=== PATIENT | male | born 1960 | race Caucasian/White ===

== ENCOUNTER → 2024-04-27 11:28 | Outpatient (REF) | payer BC, SELFPAY | LOC: HWRAD 11:28 | PROVIDERS: ATTENDING PHYSICIAN Nurse Practitioner Family | DX: M54.41 Lumbago with sciatica, right side (principal); M54.42 Lumbago with sciatica, left side | CPT/HCPCS: 72110 ==

== ENCOUNTER 2024-04-30 16:17 | Emergency (ER) | payer BC, SELFPAY ==
[2024-04-30 16:18] VITALS: BP 146/102
[2024-04-30 17:24] VITALS: BMI 25.3
--- NOTE | 2024-04-30 17:26 | ED.GENMED ---
History of Present Illness
General
Chief Complaint: Numbness
Source: patient and spouse
Exam Limitations: none
Time Seen by Provider: 04/30/24 17:13
Nursing documentation reviewed up to this point in time: agreed with
History of Present Illness
History of Present Illness:
64-year-old male with no reported past medical history presents to the emergency room for evaluation of low back pain and leg weakness/numbness. Patient reports that he started having back pain about 2 weeks ago�he cannot recall any particular
incident or injury that precipitated his symptoms except to note that he was traveling a lot and doing a lot of yard work and so he was doing a lot of prolonged sitting with interspersed rather vigorous yard work. He says that he started out with
what felt like a low back strain that radiated into his buttock bilaterally. He says that since then he has started to have shooting pains down both legs towards the feet and he is having numbness of both legs and feet. He says he feels like he is
weak in both of his legs. He says he saw his PCP who performed an x-ray last week which was unremarkable. He was started on cyclobenzaprine and has been taking NSAIDs but this has not helped very much. He was started on a steroid pack which did
not help. With increasing weakness and numbness in the legs his primary doctor sent him to the ER for evaluation. He denies any saddle anesthesia. Denies any incontinence of his bowel or bladder. He denies any history of cancer. He denies any
recent low back injections. Denies any IV drug use.
Review of Systems
Review of Systems
All Other Systems: ROS reviewed and negative except as documented in HPI and ROS
Constitutional: Denies fever or chills
Respiratory: Denies trouble breathing
Cardiac: Denies chest pain
ABD/GI: Denies abdominal pain, nausea or vomiting
: Denies flank pain or incontinence
Musculoskeletal: Reports back pain; Denies neck pain
Neurological: Reports weakness and numbness; Denies headache
Phy Exam
Physical Exam
Physical Exam:
General: Awake, alert, oriented x3; no acute distress
Head: Normocephalic, atraumatic
Eyes: Conjunctiva normal, sclera anicteric
Throat: Airway intact, handling secretions
Neck: Trachea midline, supple without meningismus
Lungs: Breathing comfortably no distress
Heart: Regular rate
Abd: Soft, non distended, nontender
Back: No reproducible tenderness in the thoracic or lumbar spine; negative straight leg raise bilaterally
Neuro: Cranial nerves grossly intact, speech fluid; mildly hyperreflexive bilateral lower extremities; patient has 4/5 strength on dorsi flexion bilaterally at the great toe; 5/5 proximal strength bilaterally in the legs; subjective numbness S1-S2
distribution bilaterally
Skin: no rash
Extremities: No edema in extremities, equal pulses in all extremities
Scores
Heart Failure Risk
Heart Failure Risk Score: Not Applicable
Heart Score for Chest Pain Patients
STEMI patient?: Not applicable
Withdrawal Assessment of Alcohol
Withdrawal Assessment Completed?: Not applicable
Course
Orders/Labs/Results
Orders:
Orders
04/30/24 17:15
Bladder Scan- Treatment ONCE
04/30/24 17:24
MR Lumbar Without Contrast Urgent
Comment:
Reason For Exam: low back pain, bilateral LE weakness and numbness
Recent pill cam endoscopy?: No
04/30/24 17:27
Complete Blood Count/With Diff Urgent
Comprehensive Metabolic Panel Urgent
Abnormal Lab Results
04/30/24
17:27
WBC 12.7 H 10^3/uL
(4.8-10.8)
Abs Immat Gran (auto) 0.1 H 10^3/uL
(0-0.05)
Absolute Neuts (auto) 11.6 H 10^3/uL
(1.4-6.5)
Absolute Lymphs (auto) 0.6 L 10^3/uL
(1.2-3.4)
Neutrophils % 91.8 H %
(42.2-75.2)
Lymphocytes % 5.1 L %
(20.5-51.1)
BUN 23 H mg/dl
(9-20)
Glucose 119 H mg/dl
(70-99)
04/30/24 17:27
04/30/24 17:27
Vital Signs
Initial and Last Documented VS:
Initial Vital Signs
Temp Pulse Resp BP Pulse Ox
36.6 C 76 16 146/102 97
04/30/24 16:18 04/30/24 16:18 04/30/24 16:18 04/30/24 16:18 04/30/24 16:18
Last Documented Vital Signs
Temp Pulse Resp BP Pulse Ox
36.6 C 77 16 131/94 97
04/30/24 16:18 04/30/24 18:00 04/30/24 18:00 04/30/24 18:00 04/30/24 18:00
MDM/Problems Addressed
Differential Diagnosis Includes:
Lumbosacral radiculopathy, cauda equina syndrome, muscular strain
MDM/Problems Addressed:
64-year-old male presents with low back pain now associated with increasing weakness and numbness in the legs. No saddle seizure or incontinence of bowel or bladder. Hypertensive but otherwise normal vitals. Physical exam as above�notably weak on
dorsiflexion bilaterally and has subjective sensory deficit bilaterally. Will plan to check screening labs and sent for MRI of the lumbar spine to rule out cauda equina syndrome. Discussed with radiologist to facilitate MRI.
Labs reviewed: CBC shows slight leukocytosis likely related to recent steroid course. CMP no clinically significant abnormalities. Patient currently in MRI, continue to monitor pending results.
MRI shows moderate severe canal stenosis L4-L5, no compression of the conus medullaris or spinal cord. Case discussed with neurosurgery that she does have some weakness on extension of the hallux longus bilaterally and some subjective sensory
deficit but strength otherwise intact, patient is ambulatory in ER. He has no retention of urine on bladder scan. Low suspicion for cauda equina syndrome but should be seen urgently, recommended starting on steroid Dosepak and follow-up in the
office within the next few days. Patient comfortable this plan. Spoke about return precautions all questions answered.
*Radiology
Radiology exam reviewed: radiology read reviewed
*Pulse Oximetry
Patient hypoxic: no
*Critical Care Note
Total Time (30-74mins, 75-104mins- exclusive of procedures): Not Applicable
Data Reviewed
Source: patient and spouse
Patient Management
Discussion with other providers: Radiologist (Discussed with radiologist)
ED Attending Note
-
Portions of this chart may have been created with voice recognition software.� Occasional wrong word or��sound alike� substitutions may have occurred due to the inherent limitations of voice recognition software.
Discharge Plan
Departure
Patient Disposition: Home (Routine Discharge)
Date of Disposition: 04/30/24
Time of Disposition: 19:37
Patient with high blood pressure during this ER visit?: Yes
Discharge Problem:
Low back pain, Lumbosacral radiculopathy
Instructions: Lumbar spinal stenosis
Prescriptions:
New
gabapentin 100 mg capsule
100 mg PO TID Qty: 20 0RF
prednisone 20 mg tablet
40 mg PO DAILY 5 Days Qty: 10 0RF
Referrals:
Philip Bautista CRNP [Family Provider] -
Ash Cummings DO [Active] - Call in 1-3 days for appt (Call tomorrow)
Activity Restrictions/Additional Instructions:
Thank you for visiting the Emergency Department at [facility].
1. Please schedule a follow up appointment as directed. Call first thing tomorrow morning to make an appointment.
2. If indicated, please take your medications as instructed and indicated on discharge paperwork.
3. If any of your symptoms do not improve, or persist, or become more severe within 6-12 hours, please return to the emergency department for further care.
4. Please return to the emergency department if you develop a headache, neck pain/stiffness, fever greater than 100.4F, chest pain, shortness of breath, persistent nausea, vomiting, slurred speech, difficulty walking, numbness/tingling, weakness,
signs of infection or any other symptoms that are worrisome to you.
Please call [phone] if you have any questions.
Interventions
Interventions:
*Risk Screen - Suicide Last Done: 04/30/24 17:25
*General Assessment Last Done: 04/30/24 17:25
*Neglect/Abuse Screening Last Done: 04/30/24 17:25
*ED COVID-19 Vaccine History Last Done: 04/30/24 17:13
ED- Neurological Assessment Last Done: 04/30/24 17:13
Discharge Date and Time
Print Language: SWAZI
[2024-04-30 17:42] LABS: % Basophils 0.2 % (0-2); % Immature Granulocytes 0.4 % (0-0.5); % Lymphocytes 5.1 % (20.5-51.1); % Monocytes 2.5 % (1.7-9.3); % Neutrophils 91.8 % (42.2-75.2); Absolute Immature Granulocytes 0.1 10^3/uL (0-0.05); Absolute Lymphocytes 0.6 10^3/uL (1.2-3.4); Absolute Monocytes 0.3 10^3/uL (0.1-0.6); Absolute Neutrophils 11.6 10^3/uL (1.4-6.5); Hematocrit 44.4 % (39.0-52.0); Hemoglobin 15.5 g/dL (13.0-18.0); Mean Corp Hgb Conc. 34.9 g/dL (33.0-37.0); Mean Corpuscular Hgb 30.2 pg (27.0-31.0); Mean Corpuscular Volume 86.4 fL (80.0-94.0); Mean Platelet Volume 9.6 fL (7.4-10.4); Nucleated Red Blood Cells % 0 % (-); Platelet Count 328 10^3/uL (130-400); Red Blood Cell Count 5.14 10^6/uL (4.70-6.10); Red Cell Dist. Width 12.5 % (11.5-14.5); White Blood Cell Count 12.7 10^3/uL (4.8-10.8)
[2024-04-30 17:58] LABS: ALT (SGPT) 41 U/L (0-50); AST (SGOT) 32 U/L (17-59); Albumin 4.7 g/dl (3.5-5.0); Alkaline Phosphatase 92 U/L (38-126); Blood Urea Nitrogen 23 mg/dl (9-20); Calcium 9.7 mg/dl (8.4-10.2); Carbon Dioxide 24 mmol/L (22-30); Chloride 102 mmol/L (98-107); Estimated Creatinine Clearance 105 ml/min; Glucose 119 mg/dl (70-99); Potassium 4.8 mmol/L (3.5-5.1); Sodium 140 mmol/L (135-145); Total Bilirubin 0.4 mg/dl (0.2-1.3); Total Protein 7.2 g/dl (6.3-8.2); eGFR > 60.00
[2024-04-30 18:00] VITALS: BP 131/94
[2024-04-30 19:38] VITALS: BP 142/91
== END 2024-04-30 20:21 | disposition home or self-care (01) ==
LOC: EMR 16:17
PROVIDERS: EMERGENCY PHYSICIAN Emergency Medicine; FAMILY PHYSICIAN Nurse Practitioner Family
DX: M54.17 Radiculopathy, lumbosacral region (principal); M48.061 Spinal stenosis, lumbar region without neurogenic claudication
CPT/HCPCS: 99284; 72148; 80053; 85025

== ENCOUNTER → 2024-07-09 08:46 | Outpatient (REF) | payer BC, SELFPAY ==
[2024-07-09 12:11] LABS: % Basophils 0.9 % (0-2); % Eosinophils 4.3 % (0-6); % Immature Granulocytes 0.2 % (0-0.5); % Lymphocytes 22.5 % (20.5-51.1); % Neutrophils 61.1 % (42.2-75.2); Absolute Eosinophils 0.2 10^3/uL (0-0.7); Absolute Monocytes 0.5 10^3/uL (0.1-0.6); Absolute Neutrophils 2.7 10^3/uL (1.4-6.5); Hemoglobin 15.6 g/dL (13.0-18.0); Mean Corp Hgb Conc. 34.7 g/dL (33.0-37.0); Mean Corpuscular Hgb 31.1 pg (27.0-31.0); Mean Corpuscular Volume 89.8 fL (80.0-94.0); Mean Platelet Volume 9.7 fL (7.4-10.4); Nucleated Red Blood Cells % 0 % (-); Platelet Count 287 10^3/uL (130-400); Red Blood Cell Count 5.01 10^6/uL (4.70-6.10); Red Cell Dist. Width 12.7 % (11.5-14.5); White Blood Cell Count 4.5 10^3/uL (4.8-10.8)
[2024-07-09 12:30] LABS: ALT (SGPT) 41 U/L (0-50); AST (SGOT) 37 U/L (17-59); Albumin 4.3 g/dl (3.5-5.0); Alkaline Phosphatase 89 U/L (38-126); Blood Urea Nitrogen 17 mg/dl (9-20); Calcium 9.1 mg/dl (8.4-10.2); Carbon Dioxide 29 mmol/L (22-30); Chloride 103 mmol/L (98-107); Glucose 86 mg/dl (70-99); HDL Cholesterol 77 mg/dl; LDL Cholesterol, Calculated 75 mg/dl; Sodium 140 mmol/L (135-145); Total Bilirubin 0.5 mg/dl (0.2-1.3); Total Cholesterol 166 mg/dl (50-199); Total Protein 6.7 g/dl (6.3-8.2); Triglyceride 72 mg/dl (10-149); Very Low Density Lipoprotein 14 mg/dl (0-30); eGFR > 60.00
[2024-07-09 12:42] LABS: Potassium 4.9 mmol/L (3.5-5.1)
[2024-07-09 12:55] LABS: TSH Reflex To Free T4 0.62 uIU/ml (0.47-4.68)
== END ==
LOC: HWLAB 08:46
PROVIDERS: ATTENDING PHYSICIAN Nurse Practitioner Family
DX: M54.41 Lumbago with sciatica, right side (principal); Z13.31 Encounter for screening for depression; M54.42 Lumbago with sciatica, left side; E78.5 Hyperlipidemia, unspecified; Z71.41 Alcohol abuse counseling and surveillance of alcoholic; K63.5 Polyp of colon; M54.2 Cervicalgia; Z00.00 Encounter for general adult medical examination without abnormal findings; I10 Essential (primary) hypertension
CPT/HCPCS: 36415; 80053; 80061; 84153; 84154; 84443; 85025

== ENCOUNTER → 2024-08-20 14:21 | Outpatient (REF) | payer BC, SELFPAY ==
[2024-08-20 16:33] LABS: TSH 1.16 uIU/ml (0.47-4.68)
[2024-08-20 17:08] LABS: Folate > 20.0 ng/ml (2.76-20); Vitamin B12 622 pg/ml (239-931)
[2024-08-21 12:31] LABS: HIV Combo Negative (Negative)
[2024-08-21 16:06] LABS: Syphilis/T. pallidum Ab Reflex Negative (Negative)
[2024-08-23 04:56] LABS: Arsenic, Blood <10.0 ug/L (<=12.0); Lead - Venous <2.0 ug/dL (<=4.9); Mercury, Blood <2.5 ug/L (<=10.0)
== END ==
LOC: REG 14:21
PROVIDERS: ATTENDING PHYSICIAN Psychiatry & Neurology Neurology; FAMILY PHYSICIAN Nurse Practitioner Family
DX: G62.9 Polyneuropathy, unspecified (principal)
CPT/HCPCS: 36415; 82175; 82306; 82607; 82746; 83655; 83735; 83825; 83921; 84155; 84165; 84207; 84425; 84443; 86618; 86780; 87389

== ENCOUNTER → 2024-12-11 08:06 | Outpatient (REF) | payer BC, SELFPAY ==
[2024-12-11 10:08] LABS: INR 1.02; PT 13.7 Sec (11.4-14.6)
[2024-12-11 10:09] LABS: APTT 27.4 Sec (23.4-35.0)
[2024-12-11 10:26] LABS: Calcium 9.2 mg/dl (8.4-10.2); Creatine Phosphokinase 309 U/L (55-170)
[2024-12-11 10:29] LABS: C-Reactive Protein < 5.00 mg/L (0.0-10.00)
[2024-12-12 12:14] LABS: Intact PTH 38.4 pg/ml (13.6-85.8)
[2024-12-13 12:11] LABS: Rheumatoid Agglutinin Less Than 10 IU (<10 IU)
[2024-12-13 12:15] LABS: Aldolase 7.7 U/L (1.2-7.6); Angiotensin-1-converting Enzym 82 U/L (16-85)
[2024-12-13 20:30] LABS: ANA, IgG Reflex to HEp-2 None Detected (None Detected)
== END ==
LOC: HWLAB 08:06
PROVIDERS: ATTENDING PHYSICIAN Psychiatry & Neurology Neurology; FAMILY PHYSICIAN Family Medicine
DX: G62.9 Polyneuropathy, unspecified (principal)
CPT/HCPCS: 36415; 82085; 82164; 82550; 83970; 85610; 85730; 86038; 86041; 86140; 86430

== ENCOUNTER → 2025-01-08 08:34 | Outpatient (REF) | payer BC, SELFPAY | LOC: HWRAD 08:34 | PROVIDERS: ATTENDING PHYSICIAN Nurse Practitioner Family | DX: G57.90 Unspecified mononeuropathy of unspecified lower limb (principal); S91.309A Unspecified open wound, unspecified foot, initial encounter | CPT/HCPCS: 73630 ==

== ENCOUNTER → 2025-01-17 12:10 | Outpatient (REF) | payer BC, SELFPAY ==
[2025-01-17 12:32] VITALS: BP 152/92; BP_SYST 65
[2025-01-17 13:50] VITALS: BP 139/99; BP_SYST 70
[2025-01-17 14:00] VITALS: BP 149/97; BP_SYST 64
[2025-01-17 14:15] VITALS: BP 147/97; BP_SYST 62
[2025-01-17 14:23] LABS: CSF Clarity Hazy; CSF Color Colorless; CSF Tube # 1; Red Cell Count/CSF 3000 mm^3; White Cell Count/CSF 2 mm^3 (0-5)
[2025-01-17 14:30] VITALS: BP 133/88; BP_SYST 68
[2025-01-17 14:45] VITALS: BP 133/88
[2025-01-17 14:52] LABS: CSF Color Colorless; CSF Tube # 4; CSF Tube # Clarity Hazy; Red Cell Count/CSF 1348 mm^3; White Blood Cell Count/CSF 3 mm^3 (0-5)
[2025-01-17 16:27] LABS: Spinal Fluid Glucose 51 mg/dl (40-70); Spinal Fluid Protein 135 mg/dl (12-60)
== END ==
LOC: RADI 12:10
PROVIDERS: ATTENDING PHYSICIAN Psychiatry & Neurology Neurology; FAMILY PHYSICIAN Nurse Practitioner Family
DX: R20.0 Anesthesia of skin (principal)
CPT/HCPCS: 62328; 82945; 84157; 86592; 89051